=== PATIENT | female | born 1930 | race Caucasian/White ===

== ENCOUNTER 2017-03-24 15:56 | Emergency (ER) | payer MEDICARE ==
--- NOTE | 2017-03-24 16:38 | ERNOTE ---
[facility] Date of Service: 03/24/17 Presenting Symptoms: other - Sore throat Time Seen by Provider: 03/24/17 16:24 Source: patient, RN notes reviewed Exam Limitations: no limitations - Immun/Allergies/Home Medications Immunizations: IMMUNIZATION HX Immunizations Up to Date Yes History of Influenza Vaccine No Hx Pneumococcal Vaccination Yes Allergies/Adverse Reactions: Allergies Allergy/AdvReac Type Severity Reaction Status Date / Time No Known Allergies Allergy Verified 03/24/17 16:04 Home Medications: HOME MEDICATIONS Atenolol [Tenormin] 50 mg PO DAILY 03/24/17 [Last Taken Unknown] Losartan Potassium [Cozaar] 50 mg PO DAILY 03/24/17 [Last Taken Unknown] - History of Present Illness Narrative: 86 year old female presents to the ED for a sore throat that began 2 or 3 days ago. She reports that she had been having allergy problems and thought that maybe her sinus drainage had caused the sore throat. She also reports a dry cough. She believes that she had a fever on the day the sore throat started. She denies any sick contacts. She has not been taking anything for her symptoms. She cares for her at home, who is on hospice. ENT Location: Present: throat Prearrival Treatment: Present: no prearrival treatment Prior Treament: Denies: recently seen Review of Systems - Review of Systems Constitutional: Present: fatigue, malaise EYE: Absent: eye pain, eye discharge ENT: Present: nose congestion, nasal drainage, sore throat. Absent: ear pain Respiratory: Present: cough. Absent: shortness of breath Cardiology: Absent: chest pain, edema Gastrointestinal/Abdominal: Absent: nausea, vomiting, abdominal pain Genitourinary: Present: no symptoms reported Musculoskeletal: Absent: muscle pain, neck pain Skin: Absent: rash, lesions Neurological: Present: headache. Absent: dizziness/light-headedness Endocrine: Present: no symptoms reported Hematologic/Lymphatic: Present: no symptoms reported Psych: Present: no symptoms reported - Patient's Past Medical History Patient History - Medical: No pertinent hx Patient History - Cardiac/Respiratory: Hypertension Patient History - Cancer: No Hx of Cancer Patient History - Surgical Procedures: Appendectomy, EGD, Total Hip Replacement , Total Knee Replacement, Orthopedic Patient History - Other: None LMP (females 10-50): Menopausal - Social History Living Situations: home Abuse History: No History of abuse Psych History: No pertinent hx Smoking Status: Never smoker Alcohol Use: none Drug Use: none - Immunizations Immunizations Up to Date: Yes Hx Pneumococcal Vaccination: Yes History of Influenza Vaccine: No Physical Exam - Physical Exam General Appearance: Present: wd/wn, alert, no apparent distress, other - Appears to not feel well Eye Exam: Normal inspection: bilateral Ears, Nose, Throat: Present: nasal congestion, pharyngeal erythema. Absent: abnormal TM (R), abnormal TM (L), sinus pain/drainage, pharyngeal swelling Neck: Present: normal inspection, nontender, supple Respiratory: Present: no respiratory distress, no accessory muscle use, rhonchi - mild, scattered Cardiovascular/Chest: Present: regular rate, rhythm, no murmur Extremity Exam: Present: normal inspection, no edema Neurological Exam: Present: alert, oriented, normal mood/affect, no motor/ sensory deficits Skin Exam: Present: normal color, warm/dry ED Progress - Results and Orders Patient's Lab Results:: I have reviewed the patient's lab results. - Vital Signs Patient's Vital Signs:: I have reviewed the patient's vital signs. Vital Signs: Vital Signs 03/24/17 16:00 Temperature 36.5 C Pulse Rate 61 Respiratory 16 Rate Blood Pressure 166/75 O2 Sat by Pulse 98 Oximetry - X-Ray X-Ray #1 X-Ray: chest Interpretation: Reviewed by me X-ray Comments: No acute cardiopulmonary process noted - Progress/Reassessment Chief Complaint: Sore Throat Progress:: Unchanged Departure Clinical Impression: Upper respiratory infection, acute - Departure Disposition: Home Follow Up Needed Condition: Stable Instructions: Upper Respiratory Infection, Adult, [id number] Additional Instructions: Drink plenty of fluids Rest Nasal saline spray for nasal congestion/drainage Humidifier Return for worsening symptoms - fever, difficulty breathing, etc., or follow up if symptoms last longer than 1 week
[2017-03-24 17:00] LABS: Hematocrit 41.9 % (37.0-47.0); Hemoglobin 14.2 gm/dL (12.5-16.0); Mean Cell Volume 91.7 fl (78-100); Mean Corpuscular Hemoglobin 31.1 pg (27-31); Mean Corpuscular Hgb Conc 33.9 g/dl (32-36); Mean Platelet Volume 8.8 fl (6.0-9.5); Neutrophil # 4.8 K/mm3 (1.3-6.0); Neutrophil % 64.5 % (42-75.0); Platelet Count 260 K/mm3 (150-450); Red Blood Count 4.57 M/mm3 (4.2-5.4); Red Cell Distribution Width 12.8 % (11.5-14.0); White Blood Count 7.4 K/mm3 (4.0-10.5)
[2017-03-24 17:17] LABS: Albumin * 3.9 gm/dl (3.4-5.0); Anion Gap 11.5 mmol/L (6.8-13.8); BUN/Creatinine Ratio 16.2 (9.0-21.6); Bilirubin, Total 1.1 mg/dL (0.0-1.1); Ca. Corrected For Albumin 9.2 mg/dL (8.4-10.2); Calcium * 9.4 mg/dL (7.9-10.9); Carbon Dioxide 32.9 mmol/L (24-32.6); Potassium 3.4 mmol/L (3.4-4.6); Total Protein 8.8 gm/dL (6.2-8.2)
[2017-03-24 18:09] VITALS: BP 146/59
== END 2017-03-24 18:26 | disposition home or self-care (01) ==
LOC: ER 15:56
DX: J06.9 Acute upper respiratory infection, unspecified (principal); I10 Essential (primary) hypertension